=== PATIENT | male | born 1960 | race Caucasian/White ===

== ENCOUNTER 2022-11-09 15:22 | Emergency (ER) | payer OTHER, SELFPAY ==
[2022-11-09 15:35] VITALS: BP 136/91; PULSE 88; RESP 20; TEMP 36.9; O2SAT 96
--- NOTE | 2022-11-09 15:55 | ED.HEATRA ---
HPI - Head Injury General Chief complaint: Head Injury Stated complaint: Laceration to Head Source: patient and RN notes reviewed History of Present Illness HPI Narrative: 62 yo M presents to urgent care with complaints of a laceration to the top of his scalp. Pt states [employer], he was bending over in his truck when the metal parking break scraped his scalp. Pt denies any LOC, neck pain, blurry vision, dizziness, chest pain, SOB, or vomiting. Pt is UTD on vaccinations. Related Data Home Medications Medication Instructions Recorded Confirmed fluticasone 250 mcg-salmeterol 50 1 inh inhalation BID 11/09/22 11/09/22 mcg/dose blistr powdr for inhalation ([facility]) Allergies Allergy/AdvReac Type Severity Reaction Status Date / Time ibuprofen Allergy Intermediate Hives Verified 11/09/22 16:05 Review of Systems Review of Systems: Pertinent positives and pertinent negatives per HPI. PMFSH Comments At the time of my signature, I reviewed and agree with the nursing past medical, surgical, social, and family history. There is no relevant family history pertinent to the patient complaint. Exam Narrative: GENERAL: This is a well-nourished, well-developed patient, in no apparent distress. HEAD: normocephalic, atraumatic. EYES: Sclera clear/white. Vision is grossly intact. EARS: External ears normal, auditory canals clear and without drainage. Hearing grossly intact. NOSE: External nose normal with no obvious nasal discharge, nares without redness, no rhinorrhea. THROAT: Mucous membranes moist, posterior pharynx clear. NECK: Neck supple, non-tender without lymphadenopathy, masses or thyromegaly. CARDIOVASCULAR: Regular rate RESPIRATORY: No respiratory distress SKIN: 5 cm laceration, linear, to parietal scalp, bleeding controlled. Deepest depth of laceration 5 mm in center. Edges superficial. NEURO: awake, alert, and oriented to person, place and time. There were no obvious focal neurologic abnormalities. Course Course Level of Care: Express Care Visit Vital Signs Vital signs: Reviewed Procedures Laceration Laceration 1: Date: 11/09/22 Time: 16:00 Site: scalp Size (cm): 5 Description: linear Depth: simple, single layer Local Anesthetic: none Pre-repair: wound explored and irrigated ====== Skin Level ====== Skin layer closed with: reg Number of sutures: 4 ====== Subcutaneous Layer ====== ====== Muscle Layer ====== ====== Tendon Layer ====== Dressing: band aid MDM - Head Injury MDM Narrative Medical decision making narrative: -Have the reg removed in 7-10 days. -Keep the dressing clean and dry for 1-2days; then you may gently clean with soap and water whenever you take a shower; however no continuous water contact like swimming. Getting them too wet can slow down healing and raise your chance of getting an infection. After you wash your stitches or reg, pat them dry and put an antibiotic ointment on them. -watch for signs of infection including: redness or swelling around the cut, or pus drains from the cut. It is normal for clear yellow fluid to drain from the cut in the first few days. -follow up with PCP for reg Differential Diagnosis Differential diagnosis: Likely other (laceration, abrasion, avulsion lac) Critical Care Time Critical Care Time Critical Care Time: No Discharge Plan Discharge Clinical Impression: Laceration Patient Disposition: Home, Self-Care Condition: Stable Instructions: Staple Care (ED) Additional Instructions: -Have the reg removed in 7-10 days. -Keep the dressing clean and dry for 1-2days; then you may gently clean with soap and water whenever you take a shower; however no continuous water contact like swimming. Getting them too wet can slow down healing and raise your chance of getting an infection. After you wash your stitches or stap
[2022-11-09] MEDS: ACETAMINOPHEN 500 MG TABLET 1000 MG PO (16:17)
== END 2022-11-09 16:21 | disposition home or self-care (01) ==
PROVIDERS: Emergency Provider Nurse Practitioner Family; PCP Internal Medicine
DX: S01.01XA Laceration without foreign body of scalp, initial encounter (principal); W22.8XXA Striking against or struck by other objects, initial encounter; J45.909 Unspecified asthma, uncomplicated
CPT/HCPCS: 12013; 99213; A9270; G0463